=== PATIENT | male | born 1945 | race Two or more races ===

== ENCOUNTER 2022-11-18 15:34 | Inpatient (IN) | payer OTHER ==
[~2022-11-18] VITALS: Ht 165.1 cm; Wt 63.5 kg
[2022-11-19] MEDS ORDERED: JANUVIA100 MG PO (08:34)
[2022-11-19] MEDS ORDERED: METFORMIN HCL1000 M2 PO (08:34)
[2022-11-19] MEDS ORDERED: COZAAR100 MG PO (08:35)
[2022-11-19] MEDS ORDERED: PRILOSEC OTC20 MG PO (08:35)
[2022-11-26] MEDS ORDERED: GLIPIZIDE10 MG (09:40)
[2022-11-26] MEDS ORDERED: SIMVASTATIN10 MG (09:40)
[2022-11-26] MEDS ORDERED: OMEPRAZOLE20 MG (09:40)
[2022-11-26] MEDS ORDERED: CLONAZEPAM0.5 MG (09:40)
[2022-11-28] MEDS ORDERED: ACETAMINOPHEN500 M2 PO (13:26)
== END 2022-11-28 15:10 | disposition home or self-care (01) | DRG 330 ==
LOC: SURH 11-25 05:56 → O/R 11-25 05:56 → SURH 11-25 08:15
PROVIDERS: ADMIT Surgery; ATTEND Surgery
PROC: 07BC4ZZ Excision of Pelvis Lymphatic, Percutaneous Endoscopic Approach (ICD-10-PCS; 2022-11-25)
PROC: 0DTN4ZZ Resection of Sigmoid Colon, Percutaneous Endoscopic Approach (ICD-10-PCS; principal; 2022-11-25 14:15)
DX: C18.7 Malignant neoplasm of sigmoid colon (principal); K92.1 Melena; D37.4 Neoplasm of uncertain behavior of colon

== ENCOUNTER 2022-11-30 18:04 | Inpatient (IN) | payer OTHER ==
[~2022-11-30] VITALS: Ht 165.1 cm; Wt 63.5 kg
[~2022-11-30 18:04] MED LIST: ACETAMINOPHEN500 M2 PO; CLONAZEPAM0.5 MG; COZAAR100 MG PO; GLIPIZIDE10 MG; JANUVIA100 MG PO; METFORMIN HCL1000 M2 PO; OMEPRAZOLE20 MG; PRILOSEC OTC20 MG PO; SIMVASTATIN10 MG
--- NOTE | 2022-11-30 18:13 | NUR ---
PACIENTE ALERTA Y ORIENTADO X3. OPERADO EL DA POR EL DR. GIOVANNI STRAUSS [place]. REFIERE QUE KETTY DESDE KETTY TIENE UN DOLOR EN EL FLANK DERECHO. [facility] HIJA REFIERE QUE TIENE LA AZUCAR EN 500 Y LA PRESION BAJITA EN .
--- NOTE | 2022-11-30 19:07 | NUR ---
pte evaluado por md thurmanien ordena tx med se euda a pte sobre el mismoy refier eentender. pte pend a resultados de lab.
--- NOTE | 2022-11-30 23:24 | NUR ---
SE RECIBE PACIENTE DEL TURNO ANTERIOR, EL MISMO SE ENCUENTRA EN TERESE CON BARANDAS ELEVADAS POR PRECAUCION A CAIDAS. SE LE ORIENTA A PACIENTE SOBRE CONTINUIDAD DE TX Y VERBALIZA ENTENDER. PACIENTE RECIBIENDO IV FLUIDS TIGRE ORDEN MEDICA. PRN SMALL LE ADMINISTRA MEDICAMENTOS Y LE COLECTA MUESTRAS DE LABORATORIO BAJO MEDIDAS ASEPTICA SY ESTERILES
--- NOTE | 2022-12-01 07:23 | NUR ---
SE RECIBE PTE ALERTA Y ORIENTADO POR 3 EN TERESE CON BARANDAS ELEVADA Y TIMBRE ACCESIBLE PTE NO PRESENTA DOLOR SE OBSERVA VENOPUNCION PATENTE Y SUSIE DE EDEMA PTE SE MANTIENE EN OBSERVACION Y BAJO TRATAMIENTO. PTE CON JHONATHAN SUMMERS DE COLOR AMARILLO OSCURO, PTE EN ESPERERA DEL DR RUELAS
--- NOTE | 2022-12-01 14:13 | NUR ---
SE LLAMA AL DR GIOVANNI RUELAS PARA DARLE SEGUIMENTO DE LA CONSULTA
--- NOTE | 2022-12-01 15:25 | NUR ---
SE RECIBE PTE MASCULINO ALERTA Y ORIENTADO EN COMPANIA DE FAMILIAR DEL TURNO ANTERIOR, CON BUEN PATRON RESPIRATORIO Y SIN QUEJA DE DOLOR. VENOPUNCION PATENTE, SUSIE DE EDEMA Y ERITEMA RECIBIENDO TERAPIA DE IVFS 0.9NSS BAJANDO A 100ML/HR. PTE CON SONDA URINARIA A GRAVEDAD DRENANDO EGRESO DE ORINA COLOR AMARILLO OSCURO CON APROXIMADAMENTE 500ML. PTE EN ESPERA DE CONSULTA CON Y MEDICINA INTERNA.
[2022-12-03] MEDS ORDERED: CLONAZEPAM0.5 MG (11:11)
[2022-12-09] MEDS ORDERED: INTESTINEX680 M1 PO ×2 (10:59→11:44)
[2022-12-09] MEDS ORDERED: AMOX1TAB5 PO (10:59)
[2022-12-09] MEDS ORDERED: MORGIDOX100 MG PO (11:41)
== END 2022-12-09 16:02 | disposition home or self-care (01) | DRG 372 ==
LOC: ER 18:04 → SURG 12-01 16:46
PROVIDERS: ADMIT Surgery; ATTEND Surgery
PROC: 4A12X4Z Monitoring of Cardiac Electrical Activity, External Approach (ICD-10-PCS; 2022-12-02)
PROC: 30233N1 Transfusion of Nonautologous Red Blood Cells into Peripheral Vein, Percutaneous Approach (ICD-10-PCS; principal; 2022-12-03)
PROC: BW21ZZZ Computerized Tomography (CT Scan) of Abdomen and Pelvis (ICD-10-PCS; 2022-12-06)
PROC: 02HV33Z Insertion of Infusion Device into Superior Vena Cava, Percutaneous Approach (ICD-10-PCS; 2022-12-07)
DX: A04.72 Enterocolitis due to Clostridium difficile, not specified as recurrent (principal); L02.211 Cutaneous abscess of abdominal wall; N17.8 Other acute kidney failure; E86.0 Dehydration; E87.6 Hypokalemia; D63.1 Anemia in chronic kidney disease; I10 Essential (primary) hypertension; E11.65 Type 2 diabetes mellitus with hyperglycemia; Z79.4 Long term (current) use of insulin; Z20.822 Contact with and (suspected) exposure to COVID-19; E11.22 Type 2 diabetes mellitus with diabetic chronic kidney disease; N18.9 Chronic kidney disease, unspecified; B95.61 Methicillin susceptible Staphylococcus aureus infection as the cause of diseases classified elsewhere